=== PATIENT | male | born 1970 ===

== ENCOUNTER 2019-06-23 02:33 | Inpatient (IN) | payer OTHER ==
[~2019-06-23] VITALS: Ht 170.2 cm; Wt 78.1 kg
[2019-06-23] VITALS (7 sets, daily range): BP systolic 95–995; BP diastolic 41–76; PULSE 63–98; TEMP 97.9–99.5
--- NOTE | 2019-06-23 05:07 | NUR ---
PT BROUGHT UP TO FLOOR AT 0400. ORIENTED TO ROOM, PT PLEASANT, ACCENT PRESENT, WARM BLANKET BROUGHT IN, NPO, FLUIDS GOING, PAIN MEDS ADMINISTERED, TABLE AT BEDSIDE, BED IN LOW POSITION, ADMISSION B, MED REC, COVID19 SCREEN COMPLETED. NO OTHER NEEDS AT THIS TIME.
[2019-06-23 06:59] LABS: BASO # 0.1 (0.0-0.2); BASO % 0.4 % (0.0-2.0); EOS # 0.2 (0.0-0.7); EOS % 1.6 % (0-4.0); GRAN # 6.8 (1.4-6.5); HEMATOCRIT 43.8 % (42.0-52.0); HEMOGLOBIN 13.8 g/dl (13.5-18.0); LYMPH # 3.5 (1.2-3.4); LYMPH % 30.3 % (20.0-51.0); MEAN CELL VOLUME 84 fl (80.0-100.0); MEAN CORPUSCULAR HEMOGLOBIN 27 pg (27.0-31.0); MEAN CORPUSCULAR HGB CONC 32 g/dl (33.0-37.0); MONO % 8.5 % (1.7-9.3); PLATELET COUNT 292 K/mm3 (130-400); RED BLOOD COUNT 5.21 M/mm3 (4.20-5.60); REDCELL DISTRIBUTION WIDTH-CV 14.6 % (11.5-14.5)
[2019-06-23 07:03] LABS: INR 1.1 (0.8-3.0); PROTHROMBIN TIME 12.6 SECONDS (9.7-12.8)
[2019-06-23 07:15] LABS: ALBUMIN 3.8 gm/dL (3.5-5.0); BILIRUBIN,TOTAL 0.5 mg/dL (0.0-1.0); CALCIUM 8.5 mg/dL (8.4-10.2); CREATININE, serum 0.78 (0.66-1.25); MAGNESIUM 2.3 mg/dL (1.6-2.3); POTASSIUM 3.9 mmol/L (3.4-5.0); TOTAL PROTEIN 6.6 gm/dL (6.4-8.2)
--- NOTE | 2019-06-23 09:11 | NUR ---
PATIENT IS ALERT AND ORIENTED. COMPLAINED OF EPIGASTRIC AND RLQ ABDOMEN PAIN AT 6/10. LAST BM WAS AT 4PM 06/22/19. HEART SOUND IS NORMAL, LUNG IS CLEAR. NO EDEMA
--- NOTE | 2019-06-23 18:21 | NUR ---
pt voicing that the [facility] has helped and stated this evenining that he felt like he was feeling good enough now to discharge tomorrow. this nurse took pt for a walk out to the 1st floor patio this afternoon, stated he felt cooped up in his room, no c/o pain after walk.
[2019-06-24 03:31] VITALS: BP 112/62; PULSE 60; TEMP 99.3
--- NOTE | 2019-06-24 06:05 | NUR ---
PT RESTED QUIETLY/SLEPT MOST OF NIGHT. ADMINISTERED NORCO TWICE DURING LEGAL REFEREE. PT WORRIED THAT HIS PAIN CAME BACK A SECOND TIME DURING THE NIGHT.
[2019-06-24 08:16] VITALS: BP 103/58; PULSE 60; TEMP 98.2
--- NOTE | 2019-06-24 09:50 | NUR ---
PT HAD C/O PAIN THIS AM, PROVIDED PT WITH NORCO. NO NOTED NAUSEA AT THIS TIME.
[2019-06-24] MEDS ORDERED: ZOFRAN 4MG T4 MG/TAB PO (09:58)
[2019-06-24] MEDS ORDERED: NORCO 325 MG-51 TAB PO (09:59)
--- NOTE | 2019-06-24 11:22 | NUR ---
Se met with client. Client was very vague. Client shares that we have asked questions multiple times and we should have the information. Client reports that he has a and he has transportation. Client shares that his PCP is on [place] and he also obtains medications from [place]. Client denies the use of any DME. Client declined given names and phone numbers. Client denies having a DPOA. Nothing further.
--- NOTE | 2019-06-24 11:30 | NUR ---
PT HAD UNEVENTFUL DAY. REMOVED PTS IV AND TELE WITHOUT ISSUES. DISCUSSED PTS DISCHARGE INFO WITH HIM. NO QUESTIONS ASKED. PT STATED HE WILL LET US KNOW WHEN HIS RIDE IS HERE TO BE ESCORTED NILESH.
--- NOTE | 2019-06-24 11:50 | NUR ---
THIS NURSE ESCORTED PT NILESH AT THIS TIME.
== END 2019-06-24 12:00 | disposition home or self-care (01) | DRG 440 ==
LOC: MEDICAL 02:33
PROVIDERS: Nurse Practitioner Family; ADMIT Student in an Organized Health Care Education/Training Program
DX: K85.90 Acute pancreatitis without necrosis or infection, unspecified (principal); F17.210 Nicotine dependence, cigarettes, uncomplicated; Z88.5 Allergy status to narcotic agent; K86.1 Other chronic pancreatitis
CPT/HCPCS: 99222-AI; 99239; J1170; J7030